=== PATIENT | male | born 1940 | race Caucasian/White ===

== ENCOUNTER 2023-05-09 12:07 | Emergency (ER) | payer MEDICARE, SELFPAY ==
[2023-05-09 12:14] VITALS: BP 108/56; PULSE 82; RESP 18; TEMP 36.5; O2SAT 96; BMI 24.3
--- NOTE | 2023-05-09 12:21 | ECG_ITS ---
[facility] Test Date: 2023-05-09 Pat Name: AMINA ROMERO Department: Room: - Gender: Male [employer]: : 1940 Requested By: Order Number: [id number] Reading MD: BIJAN LANDRUM Measurements Intervals [place] Rate: 84 P: 53 IL: 194 QRS: 18 QRSD: 92 T: 150 QT: 338 QTc: 378 Interpretive Statements 1100 Sinus rhythm 1574 with frequent ventricular premature complexes 4068 Nonspecific Twave abnormality 9140 abnormal rhythm ECG No previous ECG available for comparison Electronically Signed On 05-09-2023 16:08:59 EST by BIJAN LANDRUM
[2023-05-09 12:29] LABS: Basophils Percent Auto 0.7 % (0.2-2.0); Eosinophils Absolute Auto 0.2 10^3/uL (0.0-0.7); Eosinophils Percent Auto 3.6 % (0.9-7.0); Hematocrit 38.4 % (42.0-54.0); Hemoglobin 12.6 g/dL (14.0-18.0); Immature Granulocytes Abs Auto 0.02 10^3/uL (0.00-0.03); Immature Granulocytes Pct Auto 0.3 % (0.0-0.5); Lymphocytes Absolute Auto 0.9 10^3/uL (1.2-3.8); Lymphocytes Percent Auto 15.6 % (20.5-60.0); Mean Corpuscular HGB Conc 32.8 g/dL (29.9-35.2); Mean Corpuscular Hemoglobin 31.5 pg (25.9-34.0); Mean Platelet Volume 12.7 fL (9.5-13.5); Monocytes Absolute Auto 0.5 10^3/uL (0.3-0.8); Neutrophils Absolute Auto 4.1 10^3/uL (1.4-6.5); Neutrophils Percent Auto 70.8 % (43.0-75.0); Platelet Count 183 10^3/uL (150-450); Red Cell Distribution Width 13.7 % (11.0-15.0); White Blood Count 5.8 10^3/uL (4.0-11.0)
[2023-05-09 12:48] LABS: Alanine Aminotransferase 17 U/L (16-63); Albumin Level 3.1 g/dL (3.4-5.0); Alkaline Phosphatase 50 U/L (46-116); Anion Gap 16.9; Aspartate Amino Transferase 23 U/L (15-37); BUN Creatinine Ratio 12.6; Bilirubin Total 0.8 mg/dL (0.2-1.0); Calcium 8.9 mg/dL (8.5-10.1); Carbon Dioxide 24.8 mmol/L (21.0-32.0); Chloride 102 mmol/L (98-107); Estimated GFR (African America >60 (>=60); Estimated GFR (Non-African Ame 51 (>=60); Globulin 3.2 g/dL; Glucose 57 mg/dL (74-106); Potassium 3.7 mmol/L (3.5-5.1); Sodium 140 mmol/L (136-145); Total Protein 6.3 g/dL (6.4-8.2); Troponin I High Sensitivity 8.7 pg/mL (4.0-76.1)
[2023-05-09] MEDS: 0.9 % SODIUM CHLORIDE 1,000 ML 1000 ML IV (12:49)
[2023-05-09 12:50] LABS: Magnesium 1.8 mg/dL (1.8-2.4)
[2023-05-09 13:43] LABS: Glucometer 63 mg/dL (74-106)
--- NOTE | 2023-05-09 15:18 | ED.GENADUL1 ---
HPI - General Adult General Chief complaint: Weakness Stated complaint: GENERAL WEAKNESS Time Seen by Provider: 05/09/23 12:21 Source: patient Mode of arrival: walk-in Limitations: no limitations History of Present Illness HPI narrative: It was noted that the patient presenting to us with decreased appetite and he had multiple hospitalization over the last 2-month he just got back home on Thursday after obtaining laparoscopic cholecystectomy surgery and another facility, the patient mentioned that he have decreased appetite for the last few month when asked about it and in private the patient mentioned that he has been overwhelmed with the fact that he is taking care of his who have Alzheimer's. The patient is not suicidal or homicidal but he mentioned that he has been feeling overwhelmed with the care of his . The patient denies any abdominal pain nausea vomiting Related Data Home Medications Medication Instructions Recorded Confirmed apixaban 2.5 mg tablet (Eliquis) 2.5 mg PO Q12H 05/09/23 05/09/23 atorvastatin 40 mg tablet 40 mg PO Q24H 05/09/23 05/09/23 glimepiride 1 mg tablet 1 mg PO Q24H 05/09/23 05/09/23 hydrochlorothiazide 25 mg tablet 25 mg PO Q24H 05/09/23 05/09/23 metoclopramide HCl 5 mg tablet 5 mg PO Q6H 05/09/23 05/09/23 mirtazapine 7.5 mg tablet 7.5 mg PO Q24H 05/09/23 05/09/23 ondansetron 4 mg disintegrating 4 mg translingual PRN 05/09/23 05/09/23 tablet potassium chloride 20 mEq 20 meq PO Q24H 05/09/23 05/09/23 tablet,extended release(part/cryst) propranolol 120 mg capsule,24 120 mg PO Q24H 05/09/23 05/09/23 hr,extended release Allergies Allergy/AdvReac Type Severity Reaction Status Date / Time No Known Drug Allergies Allergy Verified 05/09/23 12:14 Review of Systems ROS Status of ROS 10 or more systems reviewed and unremarkable except as noted in history and below Exam Narrative Exam Narrative: Nurses notes and vital signs reviewed and patient is not hypoxic. General: Well-appearing and in no apparent distress. Skin: Warm, dry, no pallor noted. No rash. Head: Normocephalic, atraumatic. Neck: Supple, non-tender. Eye: Pupils are equal, round and EOMI. No scleral icterus. Ears, Nose, Mouth, and Throat: TM are clear, no nasal mucosal hypertrophy. Oral mucosa is moist, no posterior oropharynx erythema, uvula is mid-line Cardiovascular: Regular Rate and Rhythm without murmur, gallop or rub. Respiratory: No accessory muscle use or respiratory distress. Lungs are clear to auscultation, no wheezing, rales or rhonchi Chest Wall: no tenderness Back: No midline thoracic or lumbar vertebral tenderness. No CVA tenderness Musculoskeletal: normal ROM, no calf or popliteal tenderness, no lower extremity edema/swelling GI: Abdomen is soft, non-distended. Normal bowel sounds. No masses appreciated. The patient have laparoscopic surgery wound that are healing no signs of infection or tenderness No tenderness to palpation. No rebound, guarding, or rigidity noted. Neurological: A&O x4. No cranial nerve dysfunction observed. No truncal ataxia. Moves all extremities. Sensation intact. Psychiatric: Cooperative and interactive. Normal mood and affect. Constitutional Vital Signs, click to edit/add: Last Vital Signs Temp 97.7 F 05/09/23 12:14 Pulse 82 05/09/23 12:14 Resp 18 05/09/23 12:14 BP 108/56 05/09/23 12:14 Pulse Ox 96 05/09/23 12:14 O2 Del Method Room Air 05/09/23 12:14 Course Vital Signs Vital signs: Vital Signs Temperature 97.7 F 05/09/23 12:14 Pulse Rate 82 05/09/23 12:14 Respiratory Rate 18 05/09/23 12:14 Blood Pressure 108/56 05/09/23 12:14 Pulse Oximetry 96 05/09/23 12:14 Oxygen Delivery Method Room Air 05/09/23 12:14 Temperature 97.7 F 05/09/23 12:14 Pulse Rate 82 05/09/23 12:14 Respiratory Rate 18 05/09/23 12:14 Blood Pressure 108/56 05/09/23 12:14 Pulse Oximetry 96 05/09/23 12:14 Oxygen Delivery Method Room Air 05/09/23 12:14 Medical Decision Making MDM Narrative Medical decision making narrative: Initially it was noted that the patient presenting to us with a decreased appetite when talking to the patient privately he admits that he has been overwhelmed with the care of his , he did not say the word depressed initially but after a while I was able to get history from him regarding that he mentioned that he is overwhelmed as he is not able to do anything for himself and he has to spend all the time with her. The patient CBC and chemistry showed some hyperglycemia as well as some mild dehydration which mostly explained by the patient decreased p.o. intake once the patient offered juice in the ER he was drinking at with no difficulty. I spoke with the patient extensively about the fact that he need to take care of himself before taking care of his , the patient daughter was at the bedside and she did mention that she was offering him help but he was not stopping to take it. After speaking with the patient extensively he agree to try the approach of taking breaks from the care of his also about trying different juices since he has been acceptable that. The patient daughter at the bedside had question before about PEG tube I did explain to them and they both agree that right now since the problem is just more of an appetite will start working on that first before we think about other measures. The patient was tolerating juice with no difficulty. The patient also provided with resources regarding taking care of his mental health The patient is to follow up with primary care physician in next 2-3 days or to return to the emergency department should any of the signs or symptoms worsen or new symptoms develop. The patient agrees with the following Diagnosis and Treatment plan and the patient will be discharged home. Lab Data Labs: Lab Results 05/09/23 05/09/23 Range/Units 12:20 13:36 WBC 5.8 (4.0-11.0) 10^3/uL RBC 4.00 L (4.70-6.10) 10^6/uL Hgb 12.6 L (14.0-18.0) g/dL Hct 38.4 L (42.0-54.0) % MCV 96.0 H (80.0-94.0) fL MCH 31.5 (25.9-34.0) pg MCHC 32.8 (29.9-35.2) g/dL RDW 13.7 (11.0-15.0) % Plt Count 183 (150-450) 10^3/uL MPV 12.7 (9.5-13.5) fL Neut % (Auto) 70.8 (43.0-75.0) % Lymph % (Auto) 15.6 L (20.5-60.0) % [place] % (Auto) 9.0 (1.7-12.0) % Eos % (Auto) 3.6 (0.9-7.0) % Baso % (Auto) 0.7 (0.2-2.0) % Neut # (Auto) 4.1 (1.4-6.5) 10^3/uL Lymph # (Auto) 0.9 L (1.2-3.8) 10^3/uL [place] # (Auto) 0.5 (0.3-0.8) 10^3/uL Eos # (Auto) 0.2 (0.0-0.7) 10^3/uL Baso # (Auto) 0.0 (0.0-0.1) 10^3/uL Abs Immat Gran (auto) 0.02 (0.00-0.03) 10^3/uL Imm/Tot Granulo (auto) 0.3 (0.0-0.5) % Sodium 140 (136-145) mmol/L Potassium 3.7 (3.5-5.1) mmol/L Chloride 102 (98-107) mmol/L Carbon Dioxide 24.8 (21.0-32.0) mmol/L Anion Gap 16.9 BUN 17.0 (7.0-18.0) mg/dL Creatinine 1.35 H (0.70-1.30) mg/dL Est GFR ( Amer) >60 (>=60) Est GFR (Non-Af Amer) 51 L (>=60) BUN/Creatinine Ratio 12.6 Glucose 57 L (74-106) mg/dL Calcium 8.9 (8.5-10.1) mg/dL Magnesium 1.8 (1.8-2.4) mg/dL Total Bilirubin 0.8 (0.2-1.0) mg/dL AST 23 (15-37) U/L ALT 17 (16-63) U/L Alkaline Phosphatase 50 (46-116) U/L Troponin I High Sens 8.7 (4.0-76.1) pg/mL Total Protein 6.3 L (6.4-8.2) g/dL Albumin 3.1 L (3.4-5.0) g/dL Globulin 3.2 g/dL Albumin/Globulin Ratio 1.0 POC Glucose 63 L (74-106) mg/dL Discharge Plan Discharge Chief Complaint: Weakness Clinical Impression: Acute dehydration, Decrease in appetite Patient Disposition: Home, Self-Care Time of Disposition Decision: 14:28 Condition: Good Mode of Transportation: Private Vehicle Prescriptions / Home Meds: No Action Eliquis 2.5 mg tablet 2.5 mg PO Q12H atorvastatin 40 mg tablet 40 mg PO Q24H glimepiride 1 mg tablet 1 mg PO Q24H metoclopramide HCl 5 mg tablet 5 mg PO Q6H hydrochlorothiazide 25 mg tablet 25 mg PO Q24H mirtazapine 7.5 mg tablet 7.5 mg PO Q24H potassium chloride 20 mEq tablet,ER particles/crystals 20 meq PO Q24H propranolol 120 mg capsule,extended release 24 hr 120 mg PO Q24H ondansetron 4 mg tablet,disintegrating 4 mg translingual PRN Instructions: Dehydration (ED), Anorexia (DC) Stand Alone Forms: Portal Instructions Referrals: ANGELA FERRIS [Primary Care Provider] - 1 week Discharge Date/Time: 05/09/23 14:51
== END 2023-05-09 14:51 | disposition home or self-care (01) ==
PROVIDERS: Emergency Provider Emergency Medicine; PCP Family Medicine
DX: E86.0 Dehydration (principal); R63.0 Anorexia; Z68.24 Body mass index [BMI] 24.0-24.9, adult; Z79.01 Long term (current) use of anticoagulants; Z90.49 Acquired absence of other specified parts of digestive tract
CPT/HCPCS: 36415; 80053; 83735; 84484; 85025; 93005; 96360; 96361; 99284